=== PATIENT | male | born 1970 | race Caucasian/White ===

== ENCOUNTER 2019-07-30 15:46 | Emergency (ER) | payer MEDICAID, OTHER ==
[~2019-07-30] VITALS: Ht 177.8 cm; Wt 80.0 kg
[~2019-07-30 15:46] MED LIST: MEDICAL MARIJUANA INH
[2019-07-30 16:30] VITALS: BP 143/91
[2019-07-30] MEDS ORDERED: SULF1TAB49 PO (18:18)
== END 2019-07-30 18:29 | disposition home or self-care (01) ==
LOC: ER 15:46
DX: L02.413 Cutaneous abscess of right upper limb (principal); Z79.899 Other long term (current) drug therapy
CPT/HCPCS: 10060; 99284